=== PATIENT | female | born 1935 | race Asian ===

== ENCOUNTER 2023-06-21 14:31 | Inpatient (IN) | payer MEDICARE, OTHER ==
[~2023-06-21] VITALS: Ht 162.6 cm; Wt 47.2 kg
[2023-06-21 15:41] LABS: BASOPHILS % (AUTO) 0.4 % (0.0-2.0); EOSINOPHILS % (AUTO) 0.2 % (0.0-6.0); HEMATOCRIT 31 % (33-45); HEMOGLOBIN 9.8 g/dL (11.5-14.8); LYMPHOCYTES # (AUTO) 1.6 K/uL (0.8-4.8); LYMPHOCYTES % (AUTO) 18.7 % (20.0-44.0); MEAN CORPUSCULAR HEMOGLOBIN 31 PG (26.0-33.0); MEAN CORPUSCULAR HGB CONC 32 g/dl (31.0-36.0); MEAN CORPUSCULAR VOLUME 96 fL (82-100); MONOCYTES # (AUTO) 0.5 K/uL (0.1-1.30); MONOCYTES % (AUTO) 5.5 % (2.0-12.0); NEUTROPHILS # (AUTO) 6.3 K/uL (1.8-8.9); NEUTROPHILS % (AUTO) 75.2 % (43.0-81.0); PLATELET COUNT (AUTO) 436 K/uL (150-450); RED BLOOD CELL COUNT(AUTO) 3.23 MIL/uL (4.0-5.2); RED CELL DISTRIBUTION WIDTH 15.2 % (11.5-15.0); WHITE BLOOD COUNT (AUTO) 8.4 K/uL (4.3-11.0)
[2023-06-21 15:59] LABS: CALCIUM, SERUM 9.6 mg/dL (8.5-10.1); CARBON DIOXIDE 22 mmol/L (21-32); CHLORIDE 103 mmol/L (98-107); CREATININE 2.5 mg/dL (0.6-1.3); GLUCOSE 138 mg/dL (74-106); SODIUM SERUM 134 mmol/L (136-145)
[2023-06-21 16:00] LABS: UREA NITROGEN, BLOOD 98 mg/dL (7-18)
[2023-06-21] MEDS ORDERED: SODIUM POLYSTYRENE SULFONATE 15 G/60 ML BOTTLE ONE (16:23)
[2023-06-21] MEDS: IV NS 0.9% 1,000 ML BAG IV ONE (16:28)
[2023-06-21] MEDS: SODIUM POLYSTYRENE SULFONATE 15 G/60 ML BOTTLE PO ONE (16:30)
[2023-06-21] MEDS ORDERED: APIX5TAB PO (16:31)
[2023-06-21] MEDS ORDERED: DONE10TA44 PO (16:31)
[2023-06-21] MEDS ORDERED: ASCO-352 PO (16:31)
[2023-06-21] MEDS ORDERED: ATOR10TA PO (16:31)
[2023-06-21] MEDS ORDERED: FERR325T23 PO (16:31)
[2023-06-21] MEDS ORDERED: QUET50TA PO (16:31)
[2023-06-21] MEDS ORDERED: METF-440 PO (16:31)
[2023-06-21] MEDS ORDERED: NITR50CA PO (16:31)
[2023-06-21] MEDS ORDERED: METO25TA6 PO (16:31)
[2023-06-21] MEDS ORDERED: MEMA10TA PO (16:31)
[2023-06-21] MEDS ORDERED: ACET-637 PO (16:31)
[2023-06-21] MEDS ORDERED: GABA-532 PO (16:31)
[2023-06-21] MEDS ORDERED: TRAM50TA2 PO (16:31)
[2023-06-21] MEDS ORDERED: TRAZ-182 PO (16:31)
[2023-06-21] MEDS ORDERED: MELA5TAB PO (16:31)
[2023-06-21] MEDS ORDERED: LINA5TAB PO (16:31)
[2023-06-21] MEDS ORDERED: PANT40TA49 PO (16:31)
[2023-06-21] MEDS ORDERED: LINA72CA PO (16:31)
[2023-06-21] MEDS ORDERED: MAGNESIUM HYDROXIDE 30 ML UDC PO PRN (17:30)
[2023-06-21] MEDS: ACETAMINOPHEN ES 500 MG TABLET PO SCH (17:30)
[2023-06-21] MEDS ORDERED: ACETAMINOPHEN 325 MG TABLET PO PRN (17:30)
[2023-06-21] MEDS ORDERED: ONDANSETRON HCL/PF 4 MG/2 ML VIAL IVP PRN (17:30)
[2023-06-21] MEDS ORDERED: TRAMADOL HCL 50 MG TABLET PO PRN (17:30)
[2023-06-21] MEDS ORDERED: MAG HYDROX/AL HYDROX/SIMETH 30 ML UDC PO PRN (17:30)
[2023-06-21] MEDS ORDERED: Z GUARD REMEDY 4 OZ OINT TP PRN (17:30)
[2023-06-21] MEDS: APIXABAN 2.5 MG TABLET PO SCH (17:59)
[2023-06-21 20:00] VITALS: BP 134/79; TEMP 98.6; O2SAT 99
[2023-06-21] MEDS: ATORVASTATIN 10 MG TABLET PO SCH (21:37)
[2023-06-21] MEDS: TRAZODONE 50 MG TABLET PO SCH (21:37)
[2023-06-21] MEDS: QUETIAPINE FUMARATE 25 MG TABLET PO SCH (21:37)
[2023-06-21] MEDS ORDERED: Medication Not On Formulary EA (Melatonin 10 MG) PO SCH (22:00)
[2023-06-21] MEDS: IV 1/2NS 1000 ML 1,000 ML IV PRN (22:08)
[2023-06-22] VITALS: BP 153/81; TEMP 98.4; O2SAT 99
[2023-06-22 04:00] VITALS: BP 144/76; TEMP 97.5; O2SAT 97
[2023-06-22 07:07] LABS: BASOPHILS % (AUTO) 0.7 % (0.0-2.0); EOSINOPHILS % (AUTO) 0.4 % (0.0-6.0); HEMATOCRIT 27 % (33-45); HEMOGLOBIN 8.6 g/dL (11.5-14.8); LYMPHOCYTES # (AUTO) 1.5 K/uL (0.8-4.8); LYMPHOCYTES % (AUTO) 24.9 % (20.0-44.0); MEAN CORPUSCULAR HEMOGLOBIN 31 PG (26.0-33.0); MEAN CORPUSCULAR HGB CONC 32 g/dl (31.0-36.0); MEAN CORPUSCULAR VOLUME 96 fL (82-100); MONOCYTES # (AUTO) 0.6 K/uL (0.1-1.30); MONOCYTES % (AUTO) 9.4 % (2.0-12.0); NEUTROPHILS % (AUTO) 64.6 % (43.0-81.0); PLATELET COUNT (AUTO) 355 K/uL (150-450); RED BLOOD CELL COUNT(AUTO) 2.79 MIL/uL (4.0-5.2); WHITE BLOOD COUNT (AUTO) 6.2 K/uL (4.3-11.0)
[2023-06-22 08:00] VITALS: BP 146/64; TEMP 97.5; O2SAT 98
[2023-06-22 08:10] LABS: ALANINE AMINOTRANSFERASE 12 U/L (12-78); ALBUMIN 2.1 g/dL (3.4-5.0); ALKALINE PHOSPHATASE 85 U/L (46-116); ASPARTATE AMINOTRANSFERASE 17 U/L (15-37); BILIRUBIN,TOTAL 0.3 mg/dL (0.2-1.0); CALCIUM, SERUM 8.5 mg/dL (8.5-10.1); CARBON DIOXIDE 19 mmol/L (21-32); CHLORIDE 109 mmol/L (98-107); CREATININE 2.2 mg/dL (0.6-1.3); GLUCOSE 121 mg/dL (74-106); MAGNESIUM 2.2 mg/dL (1.8-2.4); PHOSPHORUS 4.7 mg/dL (2.5-4.9); POTASSIUM 4.7 mmol/L (3.5-5.1); SODIUM SERUM 139 mmol/L (136-145); UREA NITROGEN, BLOOD 83 mg/dL (7-18)
[2023-06-22] MEDS ORDERED: Medication Not On Formulary EA (Linaclotide (Linzess) 72 MCG) PO SCH (09:00)
[2023-06-22] MEDS: FERROUS SULFATE (325 MG) 325 MG/TAB TABLET PO SCH (09:13)
[2023-06-22] MEDS: METFORMIN 500 MG TABLET PO SCH (09:13)
[2023-06-22] MEDS: MEMANTINE HCL 5 MG TABLET PO SCH (09:14)
[2023-06-22] MEDS: LINAGLIPTIN 5 MG TABLET PO SCH (09:14)
[2023-06-22] MEDS: GABAPENTIN 100 MG CAPSULE PO SCH (09:14)
[2023-06-22] MEDS: ASCORBIC ACID 500 MG TABLET PO SCH (09:14)
[2023-06-22] MEDS: DONEPEZIL 5 MG TABLET PO SCH (09:15)
[2023-06-22] MEDS: METOPROLOL TARTRATE 25 MG TABLET PO SCH (09:16)
[2023-06-22] MEDS: PANTOPRAZOLE 40 MG TABLET.DR PO SCH (09:19)
[2023-06-22 12:00] VITALS: BP 130/65; TEMP 98.4; O2SAT 98
[2023-06-22 16:00] VITALS: BP 126/65; TEMP 97.5; O2SAT 98
[2023-06-22 20:00] VITALS: BP 119/59; TEMP 97.7; O2SAT 98
[2023-06-22 22:51] LABS: CREATININE, URINE 40.8 MG/DL (30.0-125.0); URINE TOTAL PROTEIN 145.2 mg/dL (0-11.9)
[2023-06-22 23:06] LABS: APPEARANCE,URINE TURBID (CLEAR); COLOR,URINE YELLOW (YELLOW)
[2023-06-22 23:07] LABS: BILIRUBIN,URINE NEGATIVE (NEGATIVE); BLOOD, URINE 1+ Ery/uL (NEGATIVE); EOSINOPHIL,URINE None Seen; KETONES,URINE NEGATIVE (NEGATIVE); LEUKOCYTE ESTERASE ,URINE 3+ (NEGATIVE); NITRITE, URINE POSITIVE (NEGATIVE); PROTEIN,URINE 1+ mg/dl (NEGATIVE); UGLUCOSE NEGATIVE (NEGATIVE); UROBILINOGEN,URINE 0.2 EU/dL (0.2)
[2023-06-22 23:08] LABS: ADD URINE CULTURE YES; BACTERIA,URINE Moderate /HPF (None Seen); SQUAMOUS EPITHELIAL CELL,UR Rare /HPF (None Seen); WBC,URINE TOO NUMEROUS TO COUN /HPF (0-3)
[2023-06-23] VITALS: BP 116/59; TEMP 97.7; O2SAT 98
[2023-06-23 04:00] VITALS: BP 137/63; TEMP 97.7; O2SAT 98
[2023-06-23 06:33] LABS: BASOPHILS # (AUTO) 0.1 K/uL (0.0-0.2); BASOPHILS % (AUTO) 1.7 % (0.0-2.0); EOSINOPHILS # (AUTO) 0.1 K/uL (0.0-0.7); EOSINOPHILS % (AUTO) 1.3 % (0.0-6.0); HEMATOCRIT 27 % (33-45); HEMOGLOBIN 8.8 g/dL (11.5-14.8); LYMPHOCYTES # (AUTO) 1.3 K/uL (0.8-4.8); LYMPHOCYTES % (AUTO) 21.2 % (20.0-44.0); MEAN CORPUSCULAR HEMOGLOBIN 31 PG (26.0-33.0); MEAN CORPUSCULAR HGB CONC 33 g/dl (31.0-36.0); MEAN CORPUSCULAR VOLUME 95 fL (82-100); MONOCYTES # (AUTO) 0.4 K/uL (0.1-1.30); NEUTROPHILS # (AUTO) 4.3 K/uL (1.8-8.9); NEUTROPHILS % (AUTO) 68.8 % (43.0-81.0); PLATELET COUNT (AUTO) 371 K/uL (150-450); RED BLOOD CELL COUNT(AUTO) 2.83 MIL/uL (4.0-5.2); RED CELL DISTRIBUTION WIDTH 14.9 % (11.5-15.0); WHITE BLOOD COUNT (AUTO) 6.3 K/uL (4.3-11.0)
[2023-06-23 06:52] LABS: ALANINE AMINOTRANSFERASE 11 U/L (12-78); ALBUMIN 2.1 g/dL (3.4-5.0); ALKALINE PHOSPHATASE 77 U/L (46-116); ASPARTATE AMINOTRANSFERASE 16 U/L (15-37); BILIRUBIN,TOTAL 0.2 mg/dL (0.2-1.0); CALCIUM, SERUM 8.4 mg/dL (8.5-10.1); CARBON DIOXIDE 20 mmol/L (21-32); CHLORIDE 107 mmol/L (98-107); CREATININE 2.3 mg/dL (0.6-1.3); GLUCOSE 106 mg/dL (74-106); PHOSPHORUS 4.5 mg/dL (2.5-4.9); POTASSIUM 3.6 mmol/L (3.5-5.1); SODIUM SERUM 140 mmol/L (136-145); TOTAL PROTEIN, SERUM 6.7 g/dL (6.4-8.2); UREA NITROGEN, BLOOD 74 mg/dL (7-18)
[2023-06-23 07:04] LABS: CREATINE KINASE, TOTAL 35 U/L (26-192)
[2023-06-23 08:00] VITALS: BP 129/64; TEMP 97.3; O2SAT 98
[2023-06-23] MEDS: GLUCERNA SHAKE 237 ML CAN PO SCH (10:06)
[2023-06-23 12:00] VITALS: BP 111/54; TEMP 97.9; O2SAT 98
[2023-06-23 16:00] VITALS: BP 136/65; TEMP 97.2; O2SAT 98
[2023-06-23 20:00] VITALS: BP 104/63; TEMP 97.7; O2SAT 98
[2023-06-24] VITALS: BP 111/55; TEMP 98.4; O2SAT 98
[2023-06-24 04:00] VITALS: BP 121/63; TEMP 97.5; O2SAT 97
[2023-06-24 08:00] VITALS: BP 126/64; TEMP 97.4; O2SAT 100
[2023-06-24 09:08] LABS: *SPE A/G RATIO 0.6 (0.7-1.7); *SPE ALBUMIN 2.3 g/dL (2.9-4.4); *SPE ALPHA-1-GLOBULIN 0.3 g/dL (0.0-0.4); *SPE ALPHA-2-GLOBULIN 1.1 g/dL (0.4-1.0); *SPE BETA GLOBULIN 1.1 g/dL (0.7-1.3); *SPE GLOBULIN, TOTAL 3.7 g/dL (2.2-3.9); *SPE M-SPIKE Not Observed g/dL (Not Observed); *SPEGAMMA GLOBULIN 1.3 g/dL (0.4-1.8)
[2023-06-24] MEDS: IV 1/2NS 1000 ML 1,000 ML IV PRN (09:10)
[2023-06-24 10:10] LABS: PTH, INTACT 19 pg/mL (15-65)
[2023-06-24 12:00] VITALS: BP 125/58; TEMP 97.5; O2SAT 100
== END 2023-06-24 15:47 | DRG 640 ==
LOC: ER 14:34 → TELE1 17:35
PROVIDERS: ADMIT Internal Medicine; ATTEND Internal Medicine
DX: E87.5 Hyperkalemia (principal); N17.0 Acute kidney failure with tubular necrosis; F02.818 Dementia in other diseases classified elsewhere, unspecified severity, with other behavioral disturbance; G93.40 Encephalopathy, unspecified; E86.0 Dehydration; E87.20 Acidosis, unspecified; G30.9 Alzheimer's disease, unspecified; I12.9 Hypertensive chronic kidney disease with stage 1 through stage 4 chronic kidney disease, or unspecified chronic kidney disease; N18.9 Chronic kidney disease, unspecified; D64.9 Anemia, unspecified; E78.5 Hyperlipidemia, unspecified; Z79.84 Long term (current) use of oral hypoglycemic drugs; Z79.01 Long term (current) use of anticoagulants; E11.22 Type 2 diabetes mellitus with diabetic chronic kidney disease; M89.8X9 Other specified disorders of bone, unspecified site
CPT/HCPCS: 36415; 71045-TC; 76770-TC; 80048-TC; 80053-TC; 81001; 82550-TC; 82570-TC; 83735-TC; 83970; 84100-TC; 84155; 84165; 84300-TC; 85025-TC; 87086-TC; A4223; G0378; J3490